=== PATIENT | female | born 1955 | race African-American/Black ===

== ENCOUNTER 2025-06-06 09:01 | Emergency (ER) | payer OTHER, SELFPAY ==
[2025-06-06] VITALS (7 sets, daily range): BP systolic 72–170; BP diastolic 47–101; PULSE 53–97; RESP 17–20; TEMP 36.7; O2SAT 98–100
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
[2025-06-06 10:06] LABS: Hematocrit 33.2 % (37.0-47.0); Hemoglobin 10.5 g/dL (12.0-15.0); Immature Granulocyte Percent A 0.2 % (0-0.5); Lymphocytes Absolute Auto 1.78 K/mm3 (0.9-3.2); Mean Corpuscular HGB Conc 31.6 g/dl (32-36); Mean Corpuscular Hemoglobin 27.7 pg (26-34); Mean Corpuscular Volume 87.6 fl (80-100); Nucleated Red Blood Cells Absolute Auto 0.000 K/mm3 (0.0-0.012); Nucleated Red Blood Cells Perc 0.0 % (0.0-0.2); Platelet Count Result 372 k/mm3 (150-375); Red Blood Count 3.79 M/mm3 (4.2-5.4); White Blood Count 6.6 K/mm3 (4.5-10.0)
[2025-06-06 10:25] LABS: Alanine Aminotransferase 12 U/L (6-35); Albumin Level 3.9 g/dL (3.5-5.1); Alkaline Phosphatase 94 U/L (38-126); Anion Gap 7 mmol/L (4-12); Aspartate Amino Transferase 20 U/L (14-36); Bilirubin,Total 0.3 mg/dL (0.2-1.3); Blood Urea Nitrogen 19 mg/dL (7-17); Calcium 8.8 mg/dL (8.4-10.2); Carbon Dioxide 27 mmol/L (22-30); Chloride 105 mmol/L (98-107); Estimated CRCL calculation 38 ml/min; Estimated Glomerular Filt Rate 40; Glucose 119 mg/dL (65-110); Potassium 4.3 mmol/L (3.4-5.0); Sodium 139 mmol/L (137-145); Total Protein 7.7 g/dL (6.3-8.2)
--- OUTSIDE RECORDS SUMMARY | 2025-06-06 10:40 | XMS_ITS | Clinical Summary ---
Author Organization [facility] Address [address] [place] [address] Care Team Providers Care Liquefaction Supervisor Name Role Phone Unavailable Primary Care Provider Unavailabl e Source Comments [facility],non-owned Affiliates and Associated Physician Practices is amultiple site organization consisting of ambulatory clinics and hospital sitesin [place], [place], [place] and [place]. This disclosure is being madepursuant to the Care Everywhere program and may not contain all information available regarding this patient. Last updated 18.[facility] Allergies No known active allergies Medications * Be aware that medications may not be up to date on this document. Alwaysverify current medications with the patient. aspirin effervescent (LOUIE SELTZER) 325 MG efferv tablet Take 325 mg by mouth every 4 hours as needed for Pain or Fever Active fluticasone propionate (FLONASE ALLERGY RELIEF) 50 MCG/ACT nasal spray Ledbetter 2 Sprays into each nostril once daily 1 Bottle 6 Active Social History Tobacco Use Types Packs/Day Years Used Date Smoking Tobacco: Never Alcohol Use Standard Drinks/Week Comments No 0 (1 standard drink = 0.6 oz pur e alcohol) Comments Unknown Sex and Gender Information Value Date Recorded Sex Assigned at Not on file Legal Sex Female 6:19 AM NETWORK STRATEGIST Gender Identity Not on file Sexual Orientation Not on file Last Filed Vital Signs Vital Sign Reading Time Taken Comments Blood Pressure 133/91 08/14/2016 10:24 AM NETWORK STRATEGIST Pulse 95 08/14/2016 10:24 AM NETWORK STRATEGIST Temperature 37 C (98.6 F) 08/14/2016 10:24 AM NETWORK STRATEGIST Respiratory Rate 14 08/14/2016 10:24 AM NETWORK STRATEGIST Oxygen Saturation 100% 08/14/2016 10:24 AM NETWORK STRATEGIST Inhaled Oxygen Concentration - - Weight 84.6 kg (186 lb 8 oz) 08/14/2016 10:24 AM NETWORK STRATEGIST Height 154.9 cm (5' 1) 08/14/2016 10:24 AM NETWORK STRATEGIST Body Mass Index 35.24 08/14/2016 10:24 AM NETWORK STRATEGIST Plan of Treatment Health Maintenance Due Date Last Done Comments BONE DENSITY TESTING 1955 COLOGUARD (AGES 45-75) - COL ON CA SCREENING 1956 COLON MONITORING 1956 COLONOSCOPY - COLON CA SCREENING 1956 CT COLONOGRAPHY - COLON CA SCREENING 1955 Colorectal Cancer Screening 1955 FIT - COLON CA SCREENING 1956 FLEX SIG - COLON CA SCREENING 1956 LIPID TESTING 1955 MAMMOGRAM 1956 HEPATITIS C SCREENING 05/28/1974 DTAP/TDAP/TD VACCINES (1 - Tdap) 1975 PNEUMOCOCCAL VACCINE 50+ (1 of 1 - PCV) 2006 ZOSTER VACCINE (1 of 2) 2006 DEPRESSION SCREENING 09/12/2024 COVID-19 VACCINE (1 - 2023-2 5 season) 2025 INFLUENZA VACCINE (#1) 2025 Respiratory Syncytial Virus (RSV) Vaccine Pt: or over 60 yrs (1 - 1-dose 75+ series) 2031 HEPATITIS B VACCINE Aged Out No longe r eligible based on patient's age to complete this topic HIB VACCINE Aged Out No longer eligi ble based on patient's age to complete this topic HPV VACCINE Aged Out No longer eligi ble based on patient's age to complete this topic MENINGOCOCCAL (Group B) VACC INE SHARED DECISION-MAKING Aged Out No longer eligibl e based on patient's age to complete this topic MENINGOCOCCAL GROUPS A/C/Y/W VACCINE Aged Out No longer eligible b ased on patient's age to complete this topic Insurance [employer]
--- OUTSIDE RECORDS SUMMARY | 2025-06-06 10:40 | XMS_ITS | Clinical Summary ---
Author Organization [facility] Address [address] [place] [id number] Care Team Providers Care Cardiovascular Surgical Tech Name Role Phone Rex Jaime Lr VICE PRESIDENT BIOSTATISTICS Primary Care Provider [phone] Allergies Active Allergy Reactions Criticality Noted Date Comments Mushrooms Hives 12/27/2023 Medications losartan (COZAAR) 25 MG tablet 04/17/2024 Active Active Problems No known active problems Family History Medical History Relation Comments No Known Problems Father Cancer Mother Dementia Mother Diabetes Mother Relation Status Comments Father Mother Social History Tobacco Use Types Packs/Day Years Used Date Smoking Tobacco: Never Smokeless Tobacco: Never Tobacco Cessation:Counseling Given: Not Answered Alcohol Use Standard Drinks/Week Comments Yes 0 (1 standard drink = 0.6 oz pur e alcohol) rare use Comments No Sex and Gender Information Value Date Recorded Sex Assigned at Not on file Legal Sex Female 6:31 PM CDT Gender Identity Not on file Sexual Orientation Not on file Last Filed Vital Signs Vital Sign Reading Time Taken Comments Blood Pressure 157/110 08/03/2024 3:42 PM PAPER AND PULP MILL OPERATOR Pulse 96 08/03/2024 3:42 PM PAPER AND PULP MILL OPERATOR Temperature 36.6 C (97.8 F) 08/03/2024 3:42 PM PAPER AND PULP MILL OPERATOR Respiratory Rate 18 08/03/2024 3:42 PM PAPER AND PULP MILL OPERATOR Oxygen Saturation 98% 08/03/2024 3:42 PM PAPER AND PULP MILL OPERATOR Inhaled Oxygen Concentration - - Weight 86.2 kg (190 lb) 08/03/2024 3:42 PM PAPER AND PULP MILL OPERATOR Height 154.9 cm (5' 1) 08/03/2024 3:42 PM PAPER AND PULP MILL OPERATOR Body Mass Index 35.9 08/03/2024 3:42 PM PAPER AND PULP MILL OPERATOR Plan of Treatment Health Maintenance Due Date Last Done Comments Colorectal Cancer Screening Colonoscopy (10 Years) 1956 Hepatitis C 1974 DTaP, Tdap and Td Vaccines (1 - Tdap) 1975 Pneumococcal Vaccine: 50+ Years (1 of 1 - PCV) 2006 Zoster Vaccines (1 of 2) 2006 Annual Medicare Wellness Visit 2021 Dexa Scan (General) 2021 PHQ-2 (Physician [place]) 09/12/2024 COVID-19 Vaccine ( season) 2025 07/03/2023, 07/27/2021, 12/24/2020, Additional history exists Mammogram Screening 05/23/2026 05/23/2024 RSV Immunization or 60+ Years (1 - 1-dose 75+ series) 2031 Meningococcal B Vaccine Aged Out No l onger eligible based on patient's age to complete this topic Meningococcal Vaccine Aged Out No glenna ghanshyam eligible based on patient's age to complete this topic RSV Immunizations Under 20 Months Aged Out No longer eligible based on patient's age to complete this topic Insurance [facility] MEDICAID Care Teams Cardiovascular Surgical Tech Relationship Specialty Start Date End Date Jaime Goodman FNP PCP - General NURSE PRACTITIONER 08/03/24
--- OUTSIDE RECORDS SUMMARY | 2025-06-06 10:40 | XMS_ITS | Clinical Summary ---
Author Organization [facility] Address [address] [place] [address] Phone Care Team Providers Care Manager Advanced Name Role Phone Unavailable Primary Care Provider Unavailabl e Social History Tobacco Use Types Packs/Day Years Used Date Smoking Tobacco: Never Assessed Comments Unknown Sex and Gender Information Value Date Recorded Sex Assigned at Not on file Legal Sex Female 2:26 PM LICENSED CLINICIAN Gender Identity Not on file Sexual Orientation Not on file Plan of Treatment Health Maintenance Due Date Last Done Comments Hepatitis C Virus (HCV) Screening 1955 TdaP Immunization 1956 Cologuard 2001 Colonoscopy 2001 Colorectal Cancer Screening 2001 Immunochemical Fecal Occult Blood 2001 Pneumococcal Immunization (5 0+ years) (1 of 1 - PCV) 2006 Zoster Immunization (1 of 2) 2006 SARS-COV-2 Immunization ( - season) 2024 07/27/2021, 12/24/2020, 11/28/2020 Influenza Immunization (#1) 2025 Respiratory Syncytial Virus (RSV) Immunization (Adult) (1 - 1-dose 75+ series) 2031 Hepatitis B Immunization Aged Out No longer eligible based on patient's age to complete this topic Human Papillomavirus (HPV) Immunization Aged Out No longer eligible b ased on patient's age to complete this topic Meningococcal Immunization (ACWY) Aged Out No longer eligible b ased on patient's age to complete this topic Rotavirus Immunization Aged Out No lo nger eligible based on patient's age to complete this topic Insurance MEDICARE C [place]
--- OUTSIDE RECORDS SUMMARY | 2025-06-06 10:40 | XMS_ITS | Clinical Summary ---
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 Phone Unavailable Primary Care Provider Unavailabl e Encounters Date Type Department Care Team Description 05/28/2025 External Device Data [facility] Provider, Abstract 04/16/2025 External Device Data [facility] Provider, Abstract 03/27/2025 External Device Data [facility] Provider, Abstract 03/27/2025 External Device Data [facility] Provider, Abstract from Last 3 Months Social History Tobacco Use Types Packs/Day Years Used Date Smoking Tobacco: Never Assessed Comments Unknown Sex and Gender Information Value Date Recorded Sex Assigned at Not on file 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 Gender Identity Not on file Sexual Orientation Not on file Plan of Treatment Health Maintenance Due Date Last Done Comments DTAP/TDAP/TD VACCINES (1 - Tdap) 1975 FIT-DNA Q 3 years 2001 FIT/FOBT Q 1 year 2001 Flex Sig/CT Colonography Q 5 years 2001 PNEUMOCOCCAL VACCINE 50+ YEARS (1 of 1 - PCV) 06/01/20 06 ZOSTER VACCINE (1 of 2) 2006 OSTEOPOROSIS SCREENING 2021 INFLUENZA VACCINE (#1) 2025 BREAST CANCER SCREENING 05/23/2025 05/23/2024 COLORECTAL SCREENING 05/20/2026 05/20/2016 Colorectal Cancer Screening 05/20/2026 RSV VACCINE (60+ or ) (1 - 1-dose 75+ series) 2031 Procedures Procedure Name Priority Date/Time Associated Diagnosis Comments MAMMO 3D SUSAN SCREEN BILAT W OR WO CAD Routine 05/23/2024 12:44 PM CDT Encounter for screening mammogram for malignant neoplasm of breast from Last 3 Months or Most Recently Relevant to Health Maintenance Results * MAMMO 3D SUSAN SCREEN BILAT W OR WO CAD (05/23/2024 12:44 PM CDT) Anatomical Region Laterality Modality Breast Bilateral Mammography 05/23/2024 12:4 8 PM CDT Impressions 05/23/2024 1:27 PM CDT IMPRESSION: Small nodule right breast for which ultrasound exam will be scheduled for further assessments. BI-RADS Category 0-Needs additional imaging. Narrative 05/23/2024 1:27 PM CDT Computer Assisted Detection (CAD) used during interpretation. INDICATION: Screening. Standard views of both breasts are obtained. 3D tomosynthesis was also utilized. The left breast is unremarkable. A 3 mm well-circumscribed nodule is noted in the lower inner portion of the right breast mid depth. Breast Density: Heterogeneously dense, which may obscure small masses. Jaime Goodman [employer]ING[employer]IST MAMMO ORDERABLES Final Result from Last 3 Months or Most Recently Relevant to Health Maintenance [place] [address] [place] [address]
--- OUTSIDE RECORDS SUMMARY | 2025-06-06 10:40 | XMS_ITS | Encounter Summary ---
Author Organization [facility] Address 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 Name Role Phone Unavailable Primary Care Provider Unavailabl e Encounter Details Date Type Department Care Team (Late st Contact Info) Description 04/09/2007 Outpatient Historical [facility] Social History Tobacco Use Types Packs/Day Years Used Date Smoking Tobacco: Never Assessed Comments Unknown Sex and Gender Information Value Date Recorded Sex Assigned at Not on file Legal Sex Female 4:59 AM [employer] Gender Identity Not on file Sexual Orientation Not on file documented as of this encounter Plan of Treatment Not on file documented as of this encounter Visit Diagnoses Not on filedocumented in this encounter
[2025-06-06] MEDS: MORPHINE SULFATE (*CRX) 4 MG/ML INJ IV PUSH (10:54)
--- NOTE | 2025-06-06 11:27 | PC.NURSE ---
this RN pushed the IV morphine at 1105 over 2 minuets. this RN scanned the medication but there was a computer error and another user was logged into the device so this RN couldn't save the update in the MAR. this RN asked the pt if she has ever had morphine before pt daughter said shes been around the block before this RN educated pt that the medication may make her feel warm and fuzzy but the med was pushed slow so she shouldn't have any reactions but if she started to feel funny to hit her call light
[2025-06-06] MEDS: LACTATED RINGERS 1,000 ML 999 ML (11:29)
--- NOTE | 2025-06-06 11:52 | PC.NURSE ---
Daughter of patient in the [facility] calling for help. Patient looking at the door unresponsive. Patient sternal rubbed and blinked asking what is going on. BP checked, SBP 70s. BG checked in normal range. MD in room checking patient. Fluids started via IV.
[2025-06-06] MEDS: KETOROLAC 30 MG/ML VIAL (*BKC) IV PUSH (14:15)
== END 2025-06-06 15:08 | disposition home or self-care (01) ==
PROVIDERS: Emergency Provider Nurse Practitioner Family
DX: S16.1XXA Strain of muscle, fascia and tendon at neck level, initial encounter (principal); V49.40XA Driver injured in collision with unspecified motor vehicles in traffic accident, initial encounter
CPT/HCPCS: 36415; 70450; 71046; 72125; 72131; 72192; 73000; 73502; 73562; 73630; 80053; 82948; 85025; 96361; 96374; 96375; 99284; J1885; J2270; J7120